=== PATIENT | male | born 1990 | race African-American/Black ===

== ENCOUNTER 2017-08-15 20:39 | Emergency (ER) | payer SELFPAY ==
--- NOTE | 2017-08-15 21:52 | ER ---
Nurse's Notes [facility] Name: Veto Thomas Age: 26 yrs Sex: Male : 1990 Arrival Date: 08/15/2017 Time: 20:41 Bed 19 Private MD: Diagnosis: Acute upper respiratory infection, unspecified Presentation: 08/15 21:43 Presenting complaint: Patient states: He has had sore throat and runny nose that aj1 started this morning and got worse while he was at work. Patient states that he tried to drink a bottle of water and vomited x1. Denies fever. Transition of care: patient was not received from another setting of care. Onset of symptoms was August 15, 2017. Initial Sepsis Screen: Does the patient meet any 2 criteria? No. Patient's initial sepsis screen is negative. Does the patient have a suspected source of infection? No. Patient's initial sepsis screen is negative. Care prior to arrival: None. 21:43 Method Of Arrival: Ambulatory aj1 21:43 Acuity: DEWEY 4 aj1 Triage Assessment: 21:46 General: Appears in no apparent distress. uncomfortable, Behavior is agitated. Pain: aj1 Complains of pain in left aspect of posterior pharynx and right aspect of posterior pharynx. EENT: Throat is reddened bilaterally. Historical: - Allergies: 21:46 No Known Allergies; aj1 - Home Meds: 21:46 None [Active]; aj1 - PMHx: 21:46 None; aj1 - PSHx: 21:46 None; aj1 - Immunization history:: Flu vaccine is not up to date. - Social history:: Smoking status: Patient uses tobacco products, 4- 5 cigarettes daily. Screenin:48 Abuse screen: Denies threats or abuse. Denies injuries from another. Nutritional aj1 screening: No deficits noted. Tuberculosis screening: No symptoms or risk factors identified. 21:57 Fall Risk None identified. ak1 Assessment: 21:48 General: Appears in no apparent distress. uncomfortable, Behavior is agitated, Upon aj1 entering the room patient is agitated states "I'm probably still going to be here 3 hours more. This is stupid. My job closes at 11 so I need to be gone by then, I need a work note for today, and I need to give it to them before they close. I'm not trying to stay here all night". Pain: Complains of pain in right aspect of posterior pharynx and left aspect of posterior pharynx Pain does not radiate. Pain currently is 7 out of 10 on a pain scale. Quality of pain is described as sharp, Is continuous, Aggravated by swallowing. Neuro: Level of Consciousness is awake, alert, obeys commands, Oriented to person, place, time, situation, Speech is normal, Facial symmetry appears normal. Cardiovascular: Patient's skin is warm and dry. Respiratory: Airway is patent Respiratory effort is even, unlabored, Respiratory pattern is regular, symmetrical, Breath sounds are clear bilaterally. GI: No signs and/or symptoms were reported involving the gastrointestinal system. : No signs and/or symptoms were reported regarding the genitourinary system. EENT: Throat is reddened bilaterally Reports sore throat. Derm: No signs and/or symptoms reported regarding the dermatologic system. Skin is pink, warm \\T\\ dry. normal. Musculoskeletal: No signs and/or symptoms reported regarding the musculoskeletal system. Circulation, motion, and sensation intact. Vital Signs: 21:46 BP 120 / 81; Pulse 88; Resp 18; Temp 98.3(O); Pulse Ox 99% on R/A; Pain 7/10; aj1 ED Course: 20:41 Patient arrived in ED. es 21:12 David Collier MD is Attending Physician. 21:44 Triage completed. aj1 21:46 Arm band placed on. aj1 21:48 Patient has correct armband on for positive identification. Bed in low position. Call aj1 light in reach. Side rails up X 1. 21:48 No provider procedures requiring assistance completed. Patient did not have IV access aj1 during this emergency room visit. Administered Medications: No medications were administered Outcome: 21:51 Discharge ordered by . gs 21:57 Discharged to home ambulatory. ak1 21:57 Condition: good 21:57 Discharge instructions given to patient, Instructed on discharge instructions, follow up and referral plans. Demonstrated understanding of instructions, follow-up care. 21:58 Patient left the ED. ak1 Signatures: Arabella Pelaez RN RN aj1 Radha Abad Amber, RN RN ak David Collier MD MD
--- NOTE | 2017-08-15 21:59 | EDPHYS ---
Physician Documentation [facility] Name: Veto Thomas Age: 26 yrs Sex: Male : 1990 Arrival Date: 08/15/2017 Time: 20:41 Bed 19 Private MD: ED Physician David Collier HPI: 08/15 21:57 This 26 yrs old Black Male presents to ER via Ambulatory with complaints of Sore Throat.gs 21:58 The patient or guardian reports flu symptoms, arthralgias, myalgias, no appetite. gs Onset: The symptoms/episode began/occurred today. Severity of symptoms: At their worst the symptoms were moderate, in the emergency department the symptoms have improved, moderately. Modifying factors: The symptoms are alleviated by nothing, the symptoms are aggravated by nothing. Associated signs and symptoms: Pertinent positives: sore throat, vomiting. The patient has experienced similar episodes in the past, a few times. The patient has not recently seen a physician. Historical: - Allergies: 21:46 No Known Allergies; aj1 - Home Meds: 21:46 None [Active]; aj1 - PMHx: 21:46 None; aj1 - PSHx: 21:46 None; aj1 - Immunization history:: Flu vaccine is not up to date. - Social history:: Smoking status: Patient uses tobacco products, 4- 5 cigarettes daily. ROS: 21:58 Constitutional: Positive for body aches, poor PO intake. gs 21:58 ENT: Positive for nasal discharge, rhinorrhea, sinus congestion, sore throat. 21:58 All other systems are negative. Exam: 21:58 Head/Face: Normocephalic, atraumatic. Eyes: Pupils equal round and reactive to light, gs extra-ocular motions intact. Lids and lashes normal. Conjunctiva and sclera are non-icteric and not injected. Cornea within normal limits. Periorbital areas with no swelling, redness, or edema. Neck: Trachea midline, no thyromegaly or masses palpated, and no cervical lymphadenopathy. Supple, full range of motion without nuchal rigidity, or vertebral point tenderness. No Meningismus. Chest/axilla: Normal chest wall appearance and motion. Nontender with no deformity. No lesions are appreciated. Cardiovascular: Regular rate and rhythm with a normal S1 and S2. No gallops, murmurs, or rubs. Normal PMI, no JVD. No pulse deficits. Respiratory: Lungs have equal breath sounds bilaterally, clear to auscultation and percussion. No rales, rhonchi or wheezes noted. No increased work of breathing, no retractions or nasal flaring. Abdomen/GI: Soft, non-tender, with normal bowel sounds. No distension or tympany. No guarding or rebound. No evidence of tenderness throughout. Back: No spinal tenderness. No costovertebral tenderness. Full range of motion. Skin: Warm, dry with normal turgor. Normal color with no rashes, no lesions, and no evidence of cellulitis. MS/ Extremity: Pulses equal, no cyanosis. Neurovascular intact. Full, normal range of motion. Neuro: Awake and alert, GCS 15, oriented to person, place, time, and situation. Cranial nerves II-XII grossly intact. Motor strength 5/5 in all extremities. Sensory grossly intact. Cerebellar exam normal. Normal gait. 21:58 Constitutional: The patient appears alert, awake. 21:58 ENT: Nose: nasal drainage, that is minimal, and is seen coming from both nares, that is clear. Vital Signs: 21:46 BP 120 / 81; Pulse 88; Resp 18; Temp 98.3(O); Pulse Ox 99% on R/A; Pain 7/10; aj1 MDM: 21:51 Patient medically screened. 21:58 Differential Diagnosis: Upper Respiratory Infection Pharyngitis Viral Syndrome. Data gs reviewed: vital signs, nurses notes. Response to treatment: the patient's symptoms have mildly improved after treatment, and as a result, I will discharge patient. Administered Medications: No medications were administered Disposition: 08/15/17 21:51 Discharged to Home. Impression: Acute upper respiratory infection, unspecified. - Condition is Stable. - Discharge Instructions: Upper Respiratory Infection, Adult. - Medication Reconciliation Form, Thank You Letter, Antibiotic Education, Prescription Opioid Use form. - Follow up: Private Physician; When: 1 - 2 days; Reason: Re-evaluation by your physician. Signatures: Arabella Pelaez RN RN aj1 Fifi England RN RN ak1 David Collier MD MD Corrections: (The following items were deleted from the chart) 21:58 21:51 08/15/2017 21:51 Discharged to Home. Impression: Acute upper respiratory ak1 infection, unspecified. Condition is Stable. Forms are Medication Reconciliation Form, Thank You Letter, Antibiotic Education, Prescription Opioid Use. Follow up: Private Physician; When: 1 - 2 days; Reason: Re-evaluation by your physician. gs
== END 2017-08-15 21:58 | disposition home or self-care (01) ==
LOC: ER 20:39
DX: J06.9 Acute upper respiratory infection, unspecified (principal); Z72.0 Tobacco use
CPT/HCPCS: 99281

== ENCOUNTER 2018-05-21 19:44 | Emergency (ER) | payer SELFPAY ==
--- NOTE | 2018-05-21 21:10 | ER ---
Nurse's Notes [facility] Name: Veto Thomas Age: 27 yrs Sex: Male : 1990 Arrival Date: 05/21/2018 Time: 19:45 Bed 19 Private MD: Diagnosis: Dental caries;Periapical abscess without sinus Presentation: 05/21 19:45 Presenting complaint: Patient states: My face was normal when I first woke up and jb4 through out the day I noticed swelling on the left side of my face and the pain just kept increasing. EMS states: Pt is complaining of and abscess on the left cheek and pain. 19:45 Transition of care: patient was not received from another setting of care. Onset of jb4 symptoms was May 21, 2018. Risk Assessment: Do you want to hurt yourself or someone else? Patient reports no desire to harm self or others. Initial Sepsis Screen: Does the patient meet any 2 criteria? No. Patient's initial sepsis screen is negative. Does the patient have a suspected source of infection? No. Patient's initial sepsis screen is negative. Care prior to arrival: None. 19:45 Method Of Arrival: EMS: [facility] jb4 19:45 Acuity: DEWEY 4 jb4 Triage Assessment: 19:45 General: Appears in no apparent distress. uncomfortable, Behavior is calm, cooperative, jb4 appropriate for age. Pain: Complains of pain in left jaw Pain does not radiate. Pain currently is 8 out of 10 on a pain scale. EENT: Throat is clear. Neuro: Level of Consciousness is awake, alert, obeys commands, Oriented to person, place, time, situation. Cardiovascular: Heart tones S1 S2 present Patient's skin is warm and dry. Respiratory: Airway is patent Respiratory effort is even, unlabored, Respiratory pattern is regular, symmetrical, Breath sounds are clear bilaterally. GI: No signs and/or symptoms were reported involving the gastrointestinal system. : No signs and/or symptoms were reported regarding the genitourinary system. Derm: Skin is intact, Skin is dry, Skin is normal, Abscess located on left jaw is golf ball sized. Musculoskeletal: Circulation, motion, and sensation intact. Swelling present in left jaw. Historical: - Allergies: 19:45 No Known Allergies; jb4 - Home Meds: 19:45 None [Active]; jb4 - PMHx: 19:45 Facial Abscess; jb4 - PSHx: 19:45 None; jb4 - Immunization history:: Adult Immunizations up to date, Flu vaccine is up to date. - Social history:: Smoking status: Patient uses tobacco products, 5-6 cigarettes per day, Patient/guardian denies using alcohol. - Ebola Screening: : No symptoms or risks identified at this time. Screenin:45 Abuse screen: Denies threats or abuse. Nutritional screening: No deficits noted. jb4 Tuberculosis screening: No symptoms or risk factors identified. Fall Risk None identified. Assessment: 19:45 General: see triage assessment.. jb4 20:47 Reassessment: Patient appears in no apparent distress at this time. Patient and/or jb4 family updated on plan of care and expected duration. Pain level reassessed. Patient is alert, oriented x 3, equal unlabored respirations, skin warm/dry/pink. 21:19 Reassessment: Pt is on shot time. jb4 21:41 Reassessment: Patient appears in no apparent distress at this time. Patient and/or jb4 family updated on plan of care and expected duration. Pain level reassessed. Patient is alert, oriented x 3, equal unlabored respirations, skin warm/dry/pink. Patient states feeling better. Vital Signs: 19:45 BP 142 / 64; Pulse 88; Resp 16; Temp 98.8; Pulse Ox 99% on R/A; Weight 85.28 kg (R); jb4 Height 6 ft. 2 in. (187.96 cm) (R); Pain 8/10; 20:45 BP 121 / 69; Pulse 75; Resp 16; Pulse Ox 100% on R/A; jb4 21:30 BP 108 / 56; Pulse 76; Resp 16; Pulse Ox 100% on R/A; jb4 19:45 Body Mass Index 24.14 (85.28 kg, 187.96 cm) 4 ED Course: 19:45 Patient arrived in ED. ag3 19:45 Arm band placed on left wrist. jb4 19:45 Patient has correct armband on for positive identification. Bed in low position. Call jb light in reach. Side rails up X 1. Pulse ox on. NIBP on. 19:50 Veto Jesus RN is Primary Nurse. jb4 19:51 Julieta Arteaga FNP-C is [facility]. snw 19:51 David Collier MD is Attending Physician. snw 19:53 Triage completed. jb4 21:41 No provider procedures requiring assistance completed. Patient did not have IV access jb4 during this emergency room visit. Administered Medications: 21:17 Drug: [place] 5 mg-325 mg 1 tabs Route: PO; jb4 21:38 Follow up: Response: No adverse reaction; Pain is decreased jb4 21:18 Drug: Clindamycin 600 mg Route: IM; Site: right gluteus; jb4 21:39 Follow up: Response: No adverse reaction jb4 21:18 Drug: Motrin 600 mg Route: PO; jb4 21:39 Follow up: Response: No adverse reaction; Pain is decreased jb4 Outcome: 21:10 Discharge ordered by . snw 21:41 Discharged to home ambulatory. jb4 21:41 Condition: stable 21:41 Discharge instructions given to patient, Instructed on discharge instructions, follow up and referral plans. medication usage, Demonstrated understanding of instructions, follow-up care, medications, Prescriptions given X 2. 21:42 Patient left the ED. jb4 Signatures: Julieta Arteaga FNP-C MASTER COSMETOLOGIST-Csnw Veto Jesus RN RN jb4 Rere Reaves 3
--- NOTE | 2018-05-21 21:11 | EDPHYS ---
Physician Documentation [facility] Name: Veto Thomas Age: 27 yrs Sex: Male : 1990 Arrival Date: 05/21/2018 Time: 19:45 Bed 19 Private MD: ED Physician David Collier HPI: 05/21 21:32 This 27 yrs old Black Male presents to ER via EMS with complaints of Facial Swelling. snw 21:32 The patient presents with bleeding, pain, swelling. The problem is located in the left snw jaw. Onset: The symptoms/episode began/occurred suddenly. Duration: The symptoms are continuous. Associated signs and symptoms: The patient has no apparent associated signs or symptoms. Severity of symptoms: At their worst the symptoms were moderate, severe. The patient has not experienced similar symptoms in the past. The patient has not recently seen a physician. Historical: - Allergies: 19:45 No Known Allergies; jb4 - Home Meds: 19:45 None [Active]; jb4 - PMHx: 19:45 Facial Abscess; jb4 - PSHx: 19:45 None; jb4 - Immunization history:: Adult Immunizations up to date, Flu vaccine is up to date. - Social history:: Smoking status: Patient uses tobacco products, 5-6 cigarettes per day, Patient/guardian denies using alcohol. - Ebola Screening: : No symptoms or risks identified at this time. ROS: 21:31 Constitutional: Negative for fever, chills, and weight loss, Eyes: Negative for injury, snw pain, redness, and discharge, Neck: Negative for injury, pain, and swelling, Cardiovascular: Negative for chest pain, palpitations, and edema, Respiratory: Negative for shortness of breath, cough, wheezing, and pleuritic chest pain, Abdomen/GI: Negative for abdominal pain, nausea, vomiting, diarrhea, and constipation, Back: Negative for injury and pain, : Negative for injury, bleeding, discharge, and swelling, MS/Extremity: Negative for injury and deformity, Skin: Negative for injury, rash, and discoloration, Neuro: Negative for headache, weakness, numbness, tingling, and seizure. 21:31 ENT: Positive for dental pain, Teeth pain mandibular swelling. Exam: 21:28 Constitutional: This is a well developed, well nourished patient who is awake, alert, snw and in no acute distress. Head/Face: Normocephalic, atraumatic. Eyes: Pupils equal round and reactive to light, extra-ocular motions intact. Lids and lashes normal. Conjunctiva and sclera are non-icteric and not injected. Cornea within normal limits. Periorbital areas with no swelling, redness, or edema. ENT: Nares patent. No nasal discharge, no septal abnormalities noted. Tympanic membranes are normal and external auditory canals are clear. Oropharynx with no redness, swelling, or masses, exudates, or evidence of obstruction, uvula midline. Mucous membranes moist. Dental caries to molars, left lower molar broken, half remains, surrounding mandibular edema Neck: Trachea midline, no thyromegaly or masses palpated, and no cervical lymphadenopathy. Supple, full range of motion without nuchal rigidity, or vertebral point tenderness. No Meningismus. Chest/axilla: Normal chest wall appearance and motion. Nontender with no deformity. No lesions are appreciated. Cardiovascular: Regular rate and rhythm with a normal S1 and S2. No gallops, murmurs, or rubs. Normal PMI, no JVD. No pulse deficits. Respiratory: Lungs have equal breath sounds bilaterally, clear to auscultation and percussion. No rales, rhonchi or wheezes noted. No increased work of breathing, no retractions or nasal flaring. Abdomen/GI: Soft, non-tender, with normal bowel sounds. No distension or tympany. No guarding or rebound. No evidence of tenderness throughout. Back: No spinal tenderness. No costovertebral tenderness. Full range of motion. Skin: Warm, dry with normal turgor. Normal color with no rashes, no lesions, and no evidence of cellulitis. MS/ Extremity: Pulses equal, no cyanosis. Neurovascular intact. Full, normal range of motion. Neuro: Awake and alert, GCS 15, oriented to person, place, time, and situation. Cranial nerves II-XII grossly intact. Motor strength 5/5 in all extremities. Sensory grossly intact. Cerebellar exam normal. Normal gait. Psych: Awake, alert, with orientation to person, place and time. Behavior, mood, and affect are within normal limits. Vital Signs: 19:45 BP 142 / 64; Pulse 88; Resp 16; Temp 98.8; Pulse Ox 99% on R/A; Weight 85.28 kg (R); jb4 Height 6 ft. 2 in. (187.96 cm) (R); Pain 8/10; 20:45 BP 121 / 69; Pulse 75; Resp 16; Pulse Ox 100% on R/A; jb4 21:30 BP 108 / 56; Pulse 76; Resp 16; Pulse Ox 100% on R/A; jb4 19:45 Body Mass Index 24.14 (85.28 kg, 187.96 cm) jb4 MDM: 20:51 Patient medically screened. snw 21:31 Data reviewed: vital signs, nurses notes. Data interpreted: Pulse oximetry: on room air snw is 100 %. Interpretation: normal. Counseling: I had a detailed discussion with the patient and/or guardian regarding: the historical points, exam findings, and any diagnostic results supporting the discharge/admit diagnosis, the need for outpatient follow up, to return to the emergency department if symptoms worsen or persist or if there are any questions or concerns that arise at home, smoking cessation. Special discussion: Based on the history and exam findings, there is no indication for further emergent testing or inpatient evaluation. I discussed with the patient/guardian the need to see a dentist for further evaluation of the symptoms. Administered Medications: 21:17 Drug: [place] 5 mg-325 mg 1 tabs Route: PO; jb4 21:38 Follow up: Response: No adverse reaction; Pain is decreased jb4 21:18 Drug: Clindamycin 600 mg Route: IM; Site: right gluteus; jb4 21:39 Follow up: Response: No adverse reaction jb4 21:18 Drug: Motrin 600 mg Route: PO; jb4 21:39 Follow up: Response: No adverse reaction; Pain is decreased jb4 Disposition: 05/22 11:30 Co-signature as Attending Physician, David Collier MD. Disposition: 05/21/18 21:10 Discharged to Home. Impression: Dental caries, Periapical abscess without sinus. - Condition is Stable. - Discharge Instructions: Dental Abscess, Dental Pain, Steps to Quit Smoking, Diet and Dental Disease, Preventive Dental Care, Adult. - Prescriptions for Clindamycin HCl 300 mg Oral Capsule - take 1 capsule by ORAL route every 6 hours for 10 days; 40 capsule. Diclofenac Sodium 75 mg Oral Tablet Sustained Release - take 1 tablet by ORAL route 2 times per day; 30 tablet. - Medication Reconciliation Form, Thank You Letter, Antibiotic Education, Prescription Opioid Use form. - Follow up: Emergency Department; When: As needed; Reason: Worsening of condition. Follow up: Private Physician; When: 1 - 2 days; Reason: Recheck today's complaints, Continuance of care, Re-evaluation by your physician. Signatures: Julieta Arteaga, DAVID-C NURSE REVIEWER-Csnw Veto Jesus RN RN jb4 David Collier MD MD gs Corrections: (The following items were deleted from the chart) 05/21 21:42 21:10 05/21/2018 21:10 Discharged to Home. Impression: Dental caries; Periapical jb4 abscess without sinus. Condition is Stable. Forms are Medication Reconciliation Form, Thank You Letter, Antibiotic Education, Prescription Opioid Use. Follow up: Emergency Department; When: As needed; Reason: Worsening of condition. Follow up: Private Physician; When: 1 - 2 days; Reason: Recheck today's complaints, Continuance of care, Re-evaluation by your physician. snw
[2018-05-21] MEDS ORDERED: IBUPROFEN 200 MG TAB PO ONE (21:19)
[2018-05-21] MEDS ORDERED: CLINDAMYCIN IV 150 MG/ML (4 mL) VIAL ONE (21:20)
[2018-05-21] MEDS ORDERED: HYDROCODONE/APAP 5/325 MG TAB ONE (21:20)
== END 2018-05-21 21:42 | disposition home or self-care (01) ==
LOC: ER 19:44
DX: K02.9 Dental caries, unspecified (principal); K04.7 Periapical abscess without sinus; F17.211 Nicotine dependence, cigarettes, in remission
CPT/HCPCS: 96372; 99284; S0077

== ENCOUNTER 2020-10-19 07:47 | Emergency (ER) | payer SELFPAY ==
--- NOTE | 2020-10-19 08:34 | ER ---
Nurse's Notes [facility] Name: Veto Thomas Age: 29 yrs Sex: Male : 1990 Arrival Date: 10/19/2020 Time: 07:53 Bed 4 Private MD: Diagnosis: Dental Abscess Presentation: 10/19 08:21 Chief complaint: Patient states: Tooth abscess to bottom right third molar x 3 days, pt jl7 requesting to just have PO antibiotics. Coronavirus screen: Client denies travel out of the [place] in the last 14 days. At this time, the client does not indicate any symptoms associated with coronavirus-19. Ebola Screen: No symptoms or risks identified at this time. Initial Sepsis Screen: Does the patient meet any 2 criteria? No. Patient's initial sepsis screen is negative. Does the patient have a suspected source of infection? No. Patient's initial sepsis screen is negative. Risk Assessment: Do you want to hurt yourself or someone else? Patient reports no desire to harm self or others. Onset of symptoms was October 16, 2020. Care prior to arrival: None. 08:21 Method Of Arrival: Ambulatory [facility] 08:21 Acuity: DEWEY 4 jl7 Triage Assessment: 08:23 General: Appears in no apparent distress. uncomfortable, Behavior is calm, cooperative, jl7 appropriate for age. Pain: Complains of pain in lower right third molar Pain radiates to right jaw Pain currently is 10 out of 10 on a pain scale. Pain began 2-3 days ago. Is continuous. EENT: yellow colored drainage noted to right third molar. Reports pain in lower right third molar. Neuro: Level of Consciousness is awake, alert, obeys commands, Oriented to person, place, time, situation. Cardiovascular: Patient's skin is warm and dry. Respiratory: Airway is patent Respiratory effort is even, unlabored, Respiratory pattern is regular, symmetrical. Derm: Skin is pink, warm \T\ dry. Historical: - Allergies: 08:23 PENICILLINS; jl7 - Home Meds: 08:23 None [Active]; jl7 - PMHx: 08:23 Facial Abscess; jl7 - PSHx: 08:23 None; jl7 - Immunization history:: Adult Immunizations not up to date, Client reports having NOT received the Covid vaccine. - Social history:: Smoking status: Patient reports the use of cigarette tobacco products, smokes one-half pack cigarettes per day, Patient uses street drugs, marijuana. Screenin:25 Abuse screen: Denies threats or abuse. Denies injuries from another. Nutritional jl7 screening: No deficits noted. Tuberculosis screening: No symptoms or risk factors identified. Fall Risk None identified. Assessment: 08:25 General: See triage assessment. jl7 Vital Signs: 08:21 BP 136 / 82; Pulse 97; Resp 19; Temp 98.7; Pulse Ox 100% ; Weight 87.09 kg; Height 6 jl7 ft. 2 in. (187.96 cm); Pain 10/10; 08:21 Body Mass Index 24.65 (87.09 kg, 187.96 cm) jl7 ED Course: 07:53 Patient arrived in ED. am2 08:16 Jackie Chen, RN is Primary Nurse. jl7 08:23 Triage completed. jl7 08:23 Arm band placed on right wrist. jl7 08:24 Power Cortes MD is Attending Physician. kdr 08:25 Patient has correct armband on for positive identification. Bed in low position. Call jl7 light in reach. Side rails up X 1. 08:47 No provider procedures requiring assistance completed. Patient did not have IV access jl7 during this emergency room visit. Administered Medications: 08:36 Drug: Clindamycin 300 mg Route: PO; jl7 Outcome: 08:33 Discharge ordered by . kdr 08:47 Discharged to home ambulatory. jl7 08:47 Condition: stable 08:47 Discharge instructions given to patient, Instructed on discharge instructions, follow up and referral plans. medication usage, Demonstrated understanding of instructions, follow-up care, medications, Prescriptions given X 2. 08:48 Patient left the ED. jl7 Signatures: Power Cortes MD MD kdr Jackie Chen, RN RN jl7 Sari Heredia am2
--- NOTE | 2020-10-19 08:34 | EDPHYS ---
Physician Documentation [facility] Name: Veto Thomas Age: 29 yrs Sex: Male : 1990 Arrival Date: 10/19/2020 Time: 07:53 Bed 4 Private MD: ED Physician Power Cortes HPI: 10/19 08:46 This 29 yrs old Black Male presents to ER via Ambulatory with complaints of Toothache, kdr Abscess. 08:46 The patient presents with pain, swelling. The problem is located in the right mandible. kdr Onset: The symptoms/episode began/occurred gradually, 3 day(s) ago. Duration: The symptoms are continuous, and are steadily getting worse. Modifying factors: The symptoms are alleviated by nothing, the symptoms are aggravated by chewing. Associated signs and symptoms: The patient has no apparent associated signs or symptoms. Severity of symptoms: At their worst the symptoms were mild, in the emergency department the symptoms are unchanged. The patient has experienced a previous episode, On other side about three years ago. The patient has not recently seen a physician. Historical: - Allergies: 08:23 PENICILLINS; jl7 - Home Meds: 08:23 None [Active]; jl7 - PMHx: 08:23 Facial Abscess; jl7 - PSHx: 08:23 None; jl7 - Immunization history:: Adult Immunizations not up to date, Client reports having NOT received the Covid vaccine. - Social history:: Smoking status: Patient reports the use of cigarette tobacco products, smokes one-half pack cigarettes per day, Patient uses street drugs, marijuana. ROS: 08:46 Constitutional: Negative for fever, chills, and weight loss, Eyes: Negative for injury, kdr pain, redness, and discharge, Neck: Negative for injury, pain, and swelling, Cardiovascular: Negative for chest pain, palpitations, and edema, Respiratory: Negative for shortness of breath, cough, wheezing, and pleuritic chest pain, Abdomen/GI: Negative for abdominal pain, nausea, vomiting, diarrhea, and constipation, Back: Negative for injury and pain, : Negative for injury, bleeding, discharge, and swelling, MS/Extremity: Negative for injury and deformity, Skin: Negative for injury, rash, and discoloration, Neuro: Negative for headache, weakness, numbness, tingling, and seizure activity. Psych: Negative for depression, anxiety, suicide ideation, homicidal ideation, and hallucinations, Allergy/Immunology: Negative for hives, rash, and allergies, Endocrine: Negative for neck swelling, polydipsia, polyuria, polyphagia, and marked weight changes, Hematologic/Lymphatic: Negative for swollen nodes, abnormal bleeding, and unusual bruising. 08:46 ENT: Positive for dental pain. Exam: 08:46 Constitutional: This is a well developed, well nourished patient who is awake, alert, kdr and in no acute distress. Head/Face: Normocephalic, atraumatic. Neck: Trachea midline, no thyromegaly or masses palpated, and no cervical lymphadenopathy. Supple, full range of motion without nuchal rigidity, or vertebral point tenderness. No Meningismus. Chest/axilla: Normal chest wall appearance and motion. Nontender with no deformity. No lesions are appreciated. 08:46 ENT: Dental exam: abscess, that is mild, specifically in the lower right first molar (#30) and lower right second molar (#31), dental caries, that is mild, specifically in the lower right first molar (#30) and lower right second molar (#31), gum swelling, pain, that is mild, specifically in the lower right first molar (#30) and lower right second molar (#31). Vital Signs: 08:21 BP 136 / 82; Pulse 97; Resp 19; Temp 98.7; Pulse Ox 100% ; Weight 87.09 kg; Height 6 jl7 ft. 2 in. (187.96 cm); Pain 10/10; 08:21 Body Mass Index 24.65 (87.09 kg, 187.96 cm) jl7 MDM: 08:33 Patient medically screened. kdr 08:37 ED course: HAND RIVETER: No results found. kdr 08:46 Data reviewed: vital signs, nurses notes. Counseling: I had a detailed discussion with kdr the patient and/or guardian regarding: the historical points, exam findings, and any diagnostic results supporting the discharge/admit diagnosis, lab results, radiology results. Response to treatment: There is no appreciated change of the patient's symptoms at this time. Special discussion: I discussed with the patient/guardian in detail that at this point there is no indication for admission to the hospital. It is understood, however, that if the symptoms persist or worsen the patient needs to return immediately for re-evaluation. Administered Medications: 08:36 Drug: Clindamycin 300 mg Route: PO; jl7 Disposition Summary: 10/19/20 08:33 Discharge Ordered Location: Home kdr Problem: new kdr Symptoms: have improved kdr Condition: Stable kdr Diagnosis - Dental Abscess kdr Followup: kdr - With: Private Physician - When: 2 - 3 days - Reason: If symptoms return, Further diagnostic work-up, Recheck today's complaints, Continuance of care, Re-evaluation by your physician Discharge Instructions: - Discharge Summary Sheet kdr - Dental Pain, [id number] kdr - Dental Abscess, [id number] kdr - Dental Caries, Adult, [id number] kdr - Preventive Dental Care, Adult kdr Forms: - Medication Reconciliation Form kdr - Thank You Letter kdr - Antibiotic Education kdr - Prescription Opioid Use kdr Prescriptions: - Clindamycin HCl 300 mg Oral Capsule - take 1 capsule by ORAL route every 6 hours for 10 days; 40 capsule; Refills: 0, kdr Product Selection Permitted - Tramadol 50 mg Oral Tablet - take 1 tablet by ORAL route every 8 hours as needed; 12 tablet; Refills: 0, kdr Product Selection Permitted Signatures: Power Cortes MD MD kdr Jackie Chen RN RN jl7
[2020-10-19 08:53] VITALS: BP 136/82; TEMP 98.7; O2SAT 100
== END 2020-10-19 08:48 | disposition home or self-care (01) ==
LOC: ER 07:47
DX: K04.7 Periapical abscess without sinus (principal); F17.210 Nicotine dependence, cigarettes, uncomplicated; Z88.0 Allergy status to penicillin
CPT/HCPCS: 99283

== ENCOUNTER 2020-10-30 07:48 | Emergency (ER) | payer SELFPAY ==
--- NOTE | 2020-10-30 09:48 | ER ---
Nurse's Notes [facility] Name: Veto Thomas Age: 30 yrs Sex: Male : 1990 Arrival Date: 10/30/2020 Time: 07:50 Bed 25 Private MD: None, None Diagnosis: Nausea with vomiting, unspecified;Viral infection, unspecified Presentation: 10/30 07:53 Chief complaint: Patient states: its has been going on the passed 3 days. i have been tw2 vomiting. very nauseous. and pain and muscle spasms on left side. cough and congestion. Coronavirus screen: congestion, cough unrelated to allergies, diarrhea, headache, nausea, runny nose, sore throat, loss of taste or smell, vomiting. Client presents with at least one sign or symptom that may indicate coronavirus-19. Standard/surgical mask placed on the client. Provider contacted for isolation considerations. Ebola Screen: Patient denies travel to an Ebola-affected area in the 21 days before illness onset. Initial Sepsis Screen: Does the patient meet any 2 criteria? HR > 90 bpm. Does the patient have a suspected source of infection? No. Patient's initial sepsis screen is negative. Risk Assessment: Do you want to hurt yourself or someone else? Patient reports no desire to harm self or others. Onset of symptoms was October 30, 2020. 07:53 Method Of Arrival: Ambulatory tw2 07:53 Acuity: DEWEY 3 tw2 Triage Assessment: 07:55 General: Appears in no apparent distress. Behavior is calm, cooperative, appropriate tw2 for age. Pain: Complains of pain in ribs and sore throat. GI: Reports lower abdominal pain, upper abdominal pain, diarrhea, nausea. Historical: - Allergies: 07:55 PENICILLINS; tw2 - Home Meds: 07:55 None [Active]; tw2 - PMHx: 07:55 Facial Abscess; tw2 - Immunization history:: Client reports having NOT received the Covid vaccine. - Social history:: Smoking status: Patient reports the use of cigarette tobacco products, 4 cigarettes a day. Screenin:40 Abuse screen: Denies threats or abuse. Denies injuries from another. Nutritional tr6 screening: No deficits noted. Tuberculosis screening: No symptoms or risk factors identified. Fall Risk None identified. Assessment: 09:51 General: Appears in no apparent distress. Behavior is calm, cooperative, appropriate tr6 for age. Pain: Denies pain. Neuro: No deficits noted. Cardiovascular: No deficits noted. Respiratory: No deficits noted. GI: Abdomen is flat, Reports nausea. : No deficits noted. EENT: No deficits noted. Derm: No deficits noted. Musculoskeletal: No deficits noted. Vital Signs: 07:53 Pulse 115; Resp 19; Temp 98.1; Pulse Ox 97% on R/A; Weight 86.18 kg; Height 6 ft. 2 in. tw2 (187.96 cm); 07:53 Body Mass Index 24.39 (86.18 kg, 187.96 cm) tw2 ED Course: 07:50 Patient arrived in ED. mr 07:50 None, None is Private Physician. mr 07:55 Triage completed. tw2 07:56 Arm band placed on. tw2 07:57 Nirmal Maloney PA is PHCP. jr8 07:57 Olman Jauregui MD is Attending Physician. jr8 07:59 Shivani Gutierrez, KASEY is Primary Nurse. tr6 09:40 Patient has correct armband on for positive identification. Placed in gown. Bed in low tr6 position. 09:40 No provider procedures requiring assistance completed. tr6 09:52 Patient did not have IV access during this emergency room visit. tr6 Administered Medications: 08:11 Drug: Ondansetron 4 mg Route: PO; tr6 Outcome: 09:47 Discharge ordered by . jr8 09:51 Discharged to home ambulatory. tr6 09:51 Condition: good 09:51 Discharge instructions given to patient, Instructed on discharge instructions, follow up and referral plans. medication usage, safety practices, Demonstrated understanding of instructions, Prescriptions given X 1. 09:52 Patient left the ED. tr6 Signatures: LauroBella mr Nirmal Maloney PA PA jr8 Deanna Clifton RN RN tw2 Shivani Gutierrez RN RN tr6
--- NOTE | 2020-10-30 09:48 | EDPHYS ---
Physician Documentation [facility] Name: Veto Thomas Age: 30 yrs Sex: Male : 1990 Arrival Date: 10/30/2020 Time: 07:50 Bed 25 Private MD: None, None ED Physician Olman Jauregui HPI: 10/30 08:13 This 30 yrs old Black Male presents to ER via Ambulatory with complaints of Nausea, jr8 Vomiting, Abdominal Pain. 08:13 The patient presents to the emergency department with nausea, vomiting. Onset: The jr8 symptoms/episode began/occurred acutely, 2 day(s) ago. Possible causes: unknown. The symptoms are aggravated by nothing. The symptoms are alleviated by nothing. Associated signs and symptoms: Pertinent positives: Cough and runny nose. Severity of symptoms: At their worst the symptoms were mild in the emergency department the symptoms are unchanged. The patient has not experienced similar symptoms in the past. The patient has not recently seen a physician. Historical: - Allergies: 07:55 PENICILLINS; tw2 - Home Meds: 07:55 None [Active]; tw2 - PMHx: 07:55 Facial Abscess; tw2 - Immunization history:: Client reports having NOT received the Covid vaccine. - Social history:: Smoking status: Patient reports the use of cigarette tobacco products, 4 cigarettes a day. ROS: 08:13 Eyes: Negative for injury, pain, redness, and discharge, Neck: Negative for injury, jr8 pain, and swelling, Cardiovascular: Negative for chest pain, palpitations, and edema, Back: Negative for injury and pain, MS/Extremity: Negative for injury and deformity, Skin: Negative for injury, rash, and discoloration, Neuro: Negative for headache, weakness, numbness, tingling, and seizure. 08:13 ENT: Positive for rhinorrhea, sore throat. 08:13 Respiratory: Positive for cough, Negative for shortness of breath, sputum production, wheezing. 08:13 Abdomen/GI: Positive for nausea, vomiting, Negative for abdominal pain, diarrhea. Exam: 08:13 Constitutional: This is a well developed, well nourished patient who is awake, alert, jr8 and in no acute distress. Eyes: Pupils equal round and reactive to light, extra-ocular motions intact. Lids and lashes normal. Conjunctiva and sclera are non-icteric and not injected. Cornea within normal limits. Periorbital areas with no swelling, redness, or edema. ENT: Nares patent. No nasal discharge, no septal abnormalities noted. Tympanic membranes are normal and external auditory canals are clear. Oropharynx with no redness, swelling, or masses, exudates, or evidence of obstruction, uvula midline. Mucous membranes moist. Neck: Trachea midline, no thyromegaly or masses palpated, and no cervical lymphadenopathy. Supple, full range of motion without nuchal rigidity, or vertebral point tenderness. No Meningismus. Cardiovascular: Regular rate and rhythm with a normal S1 and S2. No gallops, murmurs, or rubs. Normal PMI, no JVD. No pulse deficits. Respiratory: Lungs have equal breath sounds bilaterally, clear to auscultation and percussion. No rales, rhonchi or wheezes noted. No increased work of breathing, no retractions or nasal flaring. Abdomen/GI: Soft, non-tender, with normal bowel sounds. No distension or tympany. No guarding or rebound. No evidence of tenderness throughout. Back: No spinal tenderness. No costovertebral tenderness. Full range of motion. Skin: Warm, dry with normal turgor. Normal color with no rashes, no lesions, and no evidence of cellulitis. MS/ Extremity: Pulses equal, no cyanosis. Neurovascular intact. Full, normal range of motion. Neuro: Awake and alert, GCS 15, oriented to person, place, time, and situation. Cranial nerves II-XII grossly intact. Motor strength 5/5 in all extremities. Sensory grossly intact. Vital Signs: 07:53 Pulse 115; Resp 19; Temp 98.1; Pulse Ox 97% on R/A; Weight 86.18 kg; Height 6 ft. 2 in. tw2 (187.96 cm); 07:53 Body Mass Index 24.39 (86.18 kg, 187.96 cm) tw2 MDM: 07:57 Patient medically screened. [facility] 09:47 Data reviewed: vital signs, nurses notes, lab test result(s), and as a result, I will jr8 discharge patient. Data interpreted: Pulse oximetry: on room air is 97 %. Interpretation: normal. Counseling: I had a detailed discussion with the patient and/or guardian regarding: the historical points, exam findings, and any diagnostic results supporting the discharge/admit diagnosis, lab results, the need for outpatient follow up, a family practitioner, to return to the emergency department if symptoms worsen or persist or if there are any questions or concerns that arise at home. Response to treatment: the patient's symptoms have markedly improved after treatment. Administered Medications: 08:11 Drug: Ondansetron 4 mg Route: PO; tr6 Disposition: 15:53 Co-signature as Attending Physician, Olman Jauregui MD I agree with the assessment and marilia plan of care. Disposition Summary: 10/30/20 09:47 Discharge Ordered Location: Home jr8 Problem: new jr8 Symptoms: have improved jr8 Condition: Stable jr8 Diagnosis - Nausea with vomiting, unspecified jr8 - Viral infection, unspecified jr8 Followup: jr8 - With: Private Physician - When: As needed - Reason: Recheck today's complaints, Continuance of care, Re-evaluation by your physician Discharge Instructions: - Discharge Summary Sheet jr8 - Nausea and Vomiting, Adult jr8 - Viral Respiratory Infection jr8 Forms: - Medication Reconciliation Form jr8 - Thank You Letter jr8 - Antibiotic Education jr8 - Prescription Opioid Use jr8 Prescriptions: - Zofran 4 mg Oral Tablet - take 1 tablet by ORAL route every 12 hours As needed; 20 tablet; Refills: 0, jr8 Product Selection Permitted Signatures: Dispatcher [employer] EDOlman Aguilar MD MD cha Roszak, Josh, PA PA jr8 Deanna Clifton RN RN tw2 Shivani Gutierrez RN RN tr6 Corrections: (The following items were deleted from the chart) 08:30 07:59 CORONAVIRUS+MR.LAB.BRZ ordered. [facility]
[2020-10-30 09:56] VITALS: TEMP 98.1; O2SAT 97
== END 2020-10-30 09:52 | disposition home or self-care (01) ==
LOC: ER 07:48
DX: B34.9 Viral infection, unspecified (principal); Z20.822 Contact with and (suspected) exposure to COVID-19; F17.210 Nicotine dependence, cigarettes, uncomplicated
CPT/HCPCS: 99283; U0003

== ENCOUNTER 2021-05-19 21:57 | Emergency (ER) | payer SELFPAY ==
--- OUTSIDE RECORDS SUMMARY | 2021-05-19 22:00 | XMS REPORT | Continuity of Care Document ---
:1990 Author Organization [facility] t Address [address] [place] [address] Care Team Providers Name Role Phone UNASSIGNED Attending Clinician Unavailable Advance Directives Directive Decision Effective Date Termination Date Comments Sour ce Yes N/A [facility] Condition Condition Condition Status Onset Resolution Last Treating Co mments Source Name Details Category Date Date Treatment Clinician Date Problem Problem [facility] Allergies, Adverse Reactions, Alerts This patient has no known allergies or adverse reactions. Social History Social Habit Start Date Stop Date Quantity Comments Source Sex Assigned At [birth year] Male [employer] 00:00:00 00:00:00 Smoking Status Start Date Stop Date Source Unknown if ever smoked [employer] Medications Ordered Filled Start Stop Current Ordering Indication Dosage Frequency Signature Comments Components Source Medication Medication Date Date Medication? Clinician (SIG) Name Name Ondansetron No 4mg Every 8 [facility] ISTU Hcl 5-26 Hours as S (Zofran) 4 02:29: needed for H ealth Mg TAB 00 Nausea / Vomiting Vital Signs Vital Name Observation Time Observation Value Comments Source BP Diastolic 2020-08-26 02:39:00 84 mm[Hg] [employer] BP Systolic 2020-08-26 02:39:00 119 mm[Hg] [employer] Heart Rate 2020-08-26 02:39:00 70 /min [employer] Respiratory rate 2020-08-26 02:39:00 16 /min [employer] Body Temperature 2020-08-26 02:39:00 97.7 [degF] [employer] BP Diastolic 2020-08-26 02:19:00 84 mm[Hg] [employer] BP Systolic 2020-08-26 02:19:00 119 mm[Hg] [employer] Heart Rate 2020-08-26 02:19:00 70 /min [employer] Respiratory rate 2020-08-26 02:19:00 16 /min [facility] Body Temperature 2020-08-26 02:19:00 97.7 [degF] [facility] BP Diastolic 2020-08-26 00:55:00 87 mm[Hg] [facility] BP Systolic 2020-08-26 00:55:00 120 mm[Hg] [facility] Heart Rate 2020-08-26 00:55:00 78 /min [facility] Respiratory rate 2020-08-26 00:55:00 18 /min [facility] Body Temperature 2020-08-26 00:55:00 97.1 [degF] [facility] [employer] Procedures This patient has no known procedures. Encounters Start End Encounter Admission Attending Care Care Encounter Source Date/Time Date/Time Type Type Clinicians Facility Department ID 2020-08-26 2020-08-26 Departed MINNIE YANCEY [id number] [facility] 00:52:00 02:40:[address] [facility] [address] [facility] 2020-08-26 2020-08-26 Emergency ER UNASSIGNED, NAYE YANCEY [id number] [facility] 00:52:00 00:52:00 ED [id number] [facility] Results This patient has no known results.
--- NOTE | 2021-05-19 22:38 | ER ---
Nurse's Notes [facility] Name: Veto Thomas Age: 30 yrs Sex: Male : 1990 Arrival Date: 05/19/2021 Time: 21:58 Bed 14 Private MD: Diagnosis: Periapical abscess without sinus Presentation: 05/19 22:12 Chief complaint: Patient states: Swelling to right side of face since yesterday. tk1 Patient says, he has bad teeth on both sides in back of mouth. Coronavirus screen: Client denies travel out of the [place] in the last 14 days. At this time, the client does not indicate any symptoms associated with coronavirus-19. Ebola Screen: Patient negative for fever greater than or equal to 101.5 degrees Fahrenheit, and additional compatible Ebola Virus Disease symptoms Patient denies exposure to infectious person. Patient denies travel to an Ebola-affected area in the 21 days before illness onset. Initial Sepsis Screen: Does the patient meet any 2 criteria? No. Patient's initial sepsis screen is negative. Does the patient have a suspected source of infection? No. Patient's initial sepsis screen is negative. Risk Assessment: Do you want to hurt yourself or someone else? Patient reports no desire to harm self or others. Onset of symptoms was May 18, 2021. 22:12 Method Of Arrival: Ambulatory tk1 22:12 Acuity: DEWEY 2 tk1 Triage Assessment: 22:17 General: Appears distressed, uncomfortable, slender, well groomed, well developed, well tk1 nourished, Behavior is cooperative, anxious. Pain: Complains of pain in right cheek, right ear and right jaw Pain radiates to right ear Pain currently is 10 out of 10 on a pain scale. Quality of pain is described as sharp, throbbing, Pain began 2-3 days ago. Is continuous, Alleviated by nothing. EENT: Poor dentition noted. Dental caries noted in upper right third molar (#1), upper right second molar (#2), lower right second molar (#31) and lower right third molar (#32). Neuro: No deficits noted. Level of Consciousness is awake, alert, obeys commands, Oriented to person, place, time, situation, Appropriate for age Edger Feeder are equal bilaterally Moves all extremities. Full function Gait is steady, Speech is normal, Pupils are PERRLA. Cardiovascular: Capillary refill < 3 seconds is brisk in bilateral fingers. Respiratory: Airway is patent Trachea midline Respiratory effort is even, unlabored, Respiratory pattern is regular, symmetrical. GI: No deficits noted. No signs and/or symptoms were reported involving the gastrointestinal system. : No deficits noted. No signs and/or symptoms were reported regarding the genitourinary system. Derm: No deficits noted. No signs and/or symptoms reported regarding the dermatologic system. Musculoskeletal: No deficits noted. No signs and/or symptoms reported regarding the musculoskeletal system. Injury Description:. Historical: - Allergies: 22:17 PENICILLINS; tk1 - PMHx: 22:17 Facial Abscess; tk1 - Immunization history:: Adult Immunizations up to date, Client reports having NOT received the Covid vaccine. - Social history:: Smoking status: Patient reports the use of cigarette tobacco products, smokes one pack cigarettes per day. Screenin:22 Abuse screen: Denies threats or abuse. Denies injuries from another. Nutritional tk1 screening: No deficits noted. Tuberculosis screening: No symptoms or risk factors identified. Fall Risk None identified. Assessment: 22:22 Reassessment: See triage assessment. tk1 22:53 Reassessment: D/C per MD order. Discharge instructions given to patient. Verbalized tk1 understanding. Vital Signs: 22:12 BP 136 / 77 LA Sitting (auto/reg); Pulse 119 MON; Resp 20 S; Temp 98.6(O); Pulse Ox 97% tk1 on R/A; Pain 10/10; 22:14 BP 136 / 77; Pulse 119; Resp 20; Temp 98.1(O); Pulse Ox 97% ; lt3 ED Course: 21:58 Patient arrived in ED. kc5 22:11 Rose [facility]C [facility] kb 22:11 Olman Jauregui MD is Attending Physician. kb 22:12 Loretta Meneses is Primary Nurse. tk1 22:17 Triage completed. tk1 22:17 Arm band placed on right wrist. tk1 22:22 Patient has correct armband on for positive identification. Bed in low position. Call tk1 light in reach. Side rails up X 1. 22:22 No provider procedures requiring assistance completed. tk1 Administered Medications: 22:51 Drug: Ketorolac 30 mg Route: IM; Site: right gluteus; tk1 22:53 Follow up: Response: Medication administered at discharge. tk1 22:51 Drug: Clindamycin 300 mg Route: PO; tk1 22:52 Follow up: Response: Medication administered at discharge. tk1 22:52 Drug: [place] (HYDROcodone-acetaminophen) 10 mg-325 mg 1 tabs Route: PO; tk1 22:53 Follow up: Response: Medication administered at discharge. tk1 Outcome: 22:37 Discharge ordered by . kb 22:53 Discharged to home ambulatory. tk1 22:53 Condition: stable 22:53 Discharge instructions given to patient, Instructed on discharge instructions, follow up and referral plans. medication usage, Demonstrated understanding of instructions, follow-up care, medications. 22:55 Patient left the ED. tk1 Signatures: Rose Marie Sahu, BELT MEASURER-C BELT MEASURER-Leonila Avila kc5 Angeline Amato 3 Loretta Meneses tk1
--- NOTE | 2021-05-19 22:38 | EDPHYS ---
Physician Documentation [facility] Name: Veto Thomas Age: 30 yrs Sex: Male : 1990 Arrival Date: 05/19/2021 Time: 21:58 Bed 14 Private MD: ED Physician Olman Jauregui HPI: 05/19 22:34 This 30 yrs old Black Male presents to ER via Ambulatory with complaints of Facial kb Swelling. 22:34 The patient presents with pain, redness, swelling. The problem is located in the upper kb right first molar (#3) and upper right second molar (#2). The patient has experienced similar episodes in the past, a few times. The patient has not recently seen a physician. 22:35 Onset: The symptoms/episode began/occurred yesterday. Duration: The symptoms are kb continuous. Modifying factors: The symptoms are alleviated by nothing, the symptoms are aggravated by nothing. Associated signs and symptoms: Pertinent positives: pain, redness in area, swelling. Severity of symptoms: At their worst the symptoms were moderate, in the emergency department the symptoms are unchanged. Pt reports toothache and facial swelling that started yesterday. Has had dental abscesses in the past and this feels similar. Denies fever, chills, nausea or vomiting. States he took some amoxicillin that his sister had today. Historical: - Allergies: 22:17 PENICILLINS; tk1 - PMHx: 22:17 Facial Abscess; tk1 - Immunization history:: Adult Immunizations up to date, Client reports having NOT received the Covid vaccine. - Social history:: Smoking status: Patient reports the use of cigarette tobacco products, smokes one pack cigarettes per day. ROS: 22:30 Constitutional: Negative for fever, chills, and weight loss. kb 22:30 ENT: Positive for dental pain. 22:30 All other systems are negative. Exam: 22:30 Constitutional: This is a well developed, well nourished patient who is awake, alert, kb and in no acute distress. Head/Face: Normocephalic, atraumatic. Cardiovascular: Regular rate and rhythm with a normal S1 and S2. No gallops, murmurs, or rubs. No pulse deficits. Respiratory: Respirations even and unlabored. No increased work of breathing. Talking in full sentences MS/ Extremity: Pulses equal, no cyanosis. Neurovascular intact. Full, normal range of motion. Neuro: Awake and alert, GCS 15, oriented to person, place, time, and situation. Moves all extremities. Normal gait. Psych: Awake, alert, with orientation to person, place and time. Behavior, mood, and affect are within normal limits. 22:30 ENT: Dental exam: gum swelling, that is mild, specifically in the upper right second molar (#2) and upper right first molar (#3), pain, that is moderate, specifically in the upper right second molar (#2) and upper right first molar (#3). 22:30 Skin: Appearance: normal except for affected area, swelling, noted on the right cheek, that are moderate. Vital Signs: 22:12 BP 136 / 77 LA Sitting (auto/reg); Pulse 119 MON; Resp 20 S; Temp 98.6(O); Pulse Ox 97% tk1 on R/A; Pain 10/10; 22:14 BP 136 / 77; Pulse 119; Resp 20; Temp 98.1(O); Pulse Ox 97% ; lt3 MDM: 22:11 Patient medically screened. kb 22:30 Data reviewed: vital signs, nurses notes. Data interpreted: Pulse oximetry: on room air kb is 97 %. Interpretation: normal. Counseling: I had a detailed discussion with the patient and/or guardian regarding: the historical points, exam findings, and any diagnostic results supporting the discharge/admit diagnosis, the need for outpatient follow up, a dentist, to return to the emergency department if symptoms worsen or persist or if there are any questions or concerns that arise at home. 22:33 ED course: Pt denies fever/chills. No trismus. . kb 22:34 ED course: Pt educated to call dentist in the morning for follow up. kb Administered Medications: 22:51 Drug: Ketorolac 30 mg Route: IM; Site: right gluteus; tk1 22:53 Follow up: Response: Medication administered at discharge. tk1 22:51 Drug: Clindamycin 300 mg Route: PO; tk1 22:52 Follow up: Response: Medication administered at discharge. tk1 22:52 Drug: [place] (HYDROcodone-acetaminophen) 10 mg-325 mg 1 tabs Route: PO; tk1 22:53 Follow up: Response: Medication administered at discharge. tk1 Disposition Summary: 05/19/21 22:37 Discharge Ordered Location: Home kb Condition: Stable kb Diagnosis - Periapical abscess without sinus kb Followup: kb - With: Emergency Department - When: As needed - Reason: Worsening of condition Followup: kb - With: Private Physician - When: 2 - 3 days - Reason: Recheck today's complaints, Continuance of care, Re-evaluation by your physician Discharge Instructions: - Discharge Summary Sheet kb - Dental Pain, [id number] kb - Dental Abscess, [id number] kb Forms: - Medication Reconciliation Form kb - Thank You Letter kb - Antibiotic Education kb - Prescription Opioid Use kb Prescriptions: - Clindamycin HCl 300 mg Oral Capsule - take 1 capsule by ORAL route every 6 hours for 10 days; 40 capsule; Refills: 0, kb Product Selection Permitted - Diclofenac Sodium 75 mg Oral tablet,delayed release (DR/EC) - take 1 tablet by ORAL route 2 times per day As needed; 30 tablet; Refills: 0, kb Product Selection Permitted Signatures: Rose Marie Sahu FNP-C FNP-Ckb Kirby, Tammie tk1 Corrections: (The following items were deleted from the chart) 22:35 22:30 ENT: Dental exam: gum swelling, that is mild, specifically in the upper right kb second molar (#2) and upper right first molar (#3), pain, that is moderate, specifically in the lower right third molar (#32) and lower right second molar (#31), kb 22:36 22:34 The problem is located in the upper right second molar (#2) and upper right third kb molar (#1), kb 22:37 22:35 Pt reports toothache and facial swelling that started yesterday. Has had dental kb abscesses in the past and this feels similar. Denies fever, chills, nausea or vomiting. kb
[2021-05-19] MEDS ORDERED: HYDROCODONE/APAP 10/325 TAB ONE (22:44)
[2021-05-19] MEDS ORDERED: KETOROLAC 30 MG/ML INJ ONE (22:45)
[2021-05-20 00:31] VITALS: BP 136/77; O2SAT 97
[2021-05-20 00:33] VITALS: TEMP 98.1
== END 2021-05-19 22:55 | disposition home or self-care (01) ==
LOC: ER 21:57
DX: K04.7 Periapical abscess without sinus (principal); F17.210 Nicotine dependence, cigarettes, uncomplicated; Z88.0 Allergy status to penicillin
CPT/HCPCS: 96372; 99283